=== PATIENT | female | born 1980 | race Caucasian/White ===

== ENCOUNTER 2018-10-29 16:24 | Emergency (ER) | payer OTHER ==
[2018-10-29 17:35] LABS: Absolute Lymphocytes (CBC) 2.8 K/uL (0.7-4.9); Absolute Monocytes 0.7 K/uL (0.1-1.3); Absolute Neutrophil 13.9 K/uL (1.8-8.0); Basophils % 0.5 % (0-1.3); Eosinophils % 0.6 % (0-4.4); Lymphocytes % 15.9 % (15.3-44.8); MPV 10.2 fL (7.6-11.3); Monocytes % 4.3 % (3.3-12.3); RBC Red Blood Cell Count 3.74 M/uL (3.86-4.86)
[2018-10-29] MEDS ORDERED: NA CHLORIDE 0.9% 1,000 ML ONE (18:06)
[2018-10-29 18:15] LABS: BUN Blood Urea Nitrogen 5 mg/dL (7-18); Bicarbonate 28 mmol/L (21-32); Glucose Level 108 mg/dL (74-106); HCG, Quantitative 8015 mIU/mL (1-3); Potassium 3.4 mmol/L (3.5-5.1); Sodium Level 139 mmol/L (136-145)
--- NOTE | 2018-10-29 19:11 | RAD REPORT ---
EXAM DESCRIPTION: US - Transvaginal OB - 10/29/2018 6:46 pm CLINICAL HISTORY: VAGINAL BLEEDING COMPARISON: No comparisons FINDINGS: Normal IUP findings are not seen. An abnormally shaped cystic structure seen in the lower uterine segment measuring 2 x 1 cm which may be a gestational sac which is soon to be expelled. The maternal adnexa and ovaries are within normal limits. Normal Doppler blood flow was demonstrated to both ovaries. IMPRESSION: Findings suggests inevitable spontaneous . Recommend followup HCG serial measure ments until normalization.
[2018-10-29] MEDS ORDERED: FENTANYL CITR 100 MCG/2 ML ONE (19:25)
[2018-10-29] MEDS ORDERED: ONDANSETRON 4 MG/2 ML VIAL ONE (19:25)
[2018-10-29] MEDS ORDERED: CEFTRIAXONE/SWI 1gm 1 GM/10 ML SYR ONE (19:25)
--- NOTE | 2018-10-29 20:07 | ER ---
Nurse's Notes [facility] Name: Mara Edwards Age: 38 yrs Sex: Female : 1980 Arrival Date: 10/29/2018 Time: 16:32 Bed 15 Private MD: out of town, doctor Diagnosis: Spontaneous Presentation: 10/29 16:35 Presenting complaint: Patient states: i had a miscarriage on the , the pain started tw2 yesterday, and have had 8 really large blood clots today and my oncall dr for the ob (dr. rodriguez [facility]) said to come get checked out. Transition of care: patient was not received from another setting of care. Onset of symptoms was October 29, 2018. Risk Assessment: Do you want to hurt yourself or someone else? Patient reports no desire to harm self or others. Initial Sepsis Screen: Does the patient meet any 2 criteria? No. Patient's initial sepsis screen is negative. Does the patient have a suspected source of infection? No. Patient's initial sepsis screen is negative. Care prior to arrival: None. 16:35 Method Of Arrival: Ambulatory tw2 16:35 Acuity: HANK 3 tw2 VIDEO GAME CREATOR: 16:37 LMP N/A - possibly 08/16/18 prior to miscarriage tw2 Historical: - Allergies: 16:38 No Known Allergies; tw2 - Home Meds: 16:38 None [Active]; tw2 - PMHx: 16:38 SVT; tw2 - PSHx: 16:38 Knee surgery; wrist; tw2 - Immunization history:: Adult Immunizations. - Social history:: Smoking status: Patient uses tobacco products, 10 or less. - Ebola Screening: : Patient denies exposure to infectious person Patient denies travel to an Ebola-affected area in the 21 days before illness onset. Screenin:40 Abuse screen: Denies threats or abuse. Nutritional screening: No deficits noted. rb1 Tuberculosis screening: No symptoms or risk factors identified. Fall Risk None identified. Assessment: 16:40 General: Appears in no apparent distress. comfortable, Behavior is calm, cooperative. rb1 Neuro: Level of Consciousness is awake, alert, obeys commands, Oriented to person, place, time, situation. Cardiovascular: Capillary refill < 3 seconds is brisk in bilateral fingers. Respiratory: Airway is patent Respiratory effort is even, unlabored, Respiratory pattern is regular, symmetrical. GI: Reports vomiting, x 1 today. Pt. stated, "I think it was because I took a Tylenol #3.". : Reports vaginal bleeding that is bright red, with clots, heavy flow since yesterday. Derm: Skin is pink, warm \\T\\ dry. 16:40 Pain: Complains of pain in suprapubic area, right lower quadrant and left lower rb1 quadrant Pain currently is 5 out of 10 on a pain scale. Quality of pain is described as crampy. 16:50 Reassessment: Pt. collected a urine specimen but it was bloody and she stated, "A big rb1 clot fell in it." Provider notified. Karytracy stated, "It's ok, we won't be able to use it.". 17:40 Reassessment: Patient appears in no apparent distress at this time. No changes from rb1 previously documented assessment. Provider at bedside doing pelvic exam. 18:40 Reassessment: Patient appears in no apparent distress at this time. Patient and/or rb1 family updated on plan of care and expected duration. Pain level reassessed. Patient is alert, oriented x 3, equal unlabored respirations, skin warm/dry/pink. 19:30 Reassessment: Patient appears in no apparent distress at this time. Patient and/or jb4 family updated on plan of care and expected duration. Pain level reassessed. Patient is alert, oriented x 3, equal unlabored respirations, skin warm/dry/pink. 20:30 Reassessment: Patient appears in no apparent distress at this time. Patient and/or jb4 family updated on plan of care and expected duration. Pain level reassessed. Patient is alert, oriented x 3, equal unlabored respirations, skin warm/dry/pink. Vital Signs: 16:37 BP 120 / 88; Pulse 133; Resp 19; Temp 97.4(O); Pulse Ox 100% ; Pain 4/10; tw2 16:39 Pulse 110; tw2 17:38 BP 107 / 78; Pulse 96; Resp 19; Pulse Ox 99% on R/A; rb1 18:35 BP 108 / 76; Pulse 88; Resp 17; Pulse Ox 100% on R/A; rb1 19:15 BP 97 / 76; Pulse 91; Resp 16; Pulse Ox 100% on R/A; jb4 20:45 BP 91 / 63; Pulse 78; Resp 16; Pulse Ox 100% ; jb4 ED Course: 16:32 Patient arrived in ED. sb2 16:32 out of town, doctor is Private Physician. sb2 16:36 Triage completed. tw2 16:37 Arm band placed on. tw2 16:40 Pavan Barnett PA is PHCP. jr8 16:40 Kenneth Tapia MD is Attending Physician. jr8 16:40 Lioda Lozano, BETHEL is Primary Nurse. rb1 16:40 Patient has correct armband on for positive identification. Bed in low position. Call rb1 light in reach. Side rails up X 1. Pulse ox on. NIBP on. 17:22 Initial lab(s) drawn, by me, sent to lab. Inserted saline lock: 20 gauge in right dh3 antecubital area, using aseptic technique. Blood collected. 18:15 Assist provider with pelvic exam: Performed by Pavan PALACIOS Patient tolerated well. eb 18:45 Transvaginal OB US In Process Unspecified. EDMS 19:10 Report given to BETHEL May. rb1 20:57 IV discontinued, intact, bleeding controlled. jb4 Administered Medications: 18:01 Drug: NS 0.9% 1000 ml Route: IV; Rate: 1000 ml; Site: right antecubital; rb1 19:45 Follow up: Response: No adverse reaction; IV Status: Completed infusion jb4 19:28 Drug: Zofran 4 mg Route: IVP; Site: right antecubital; jb4 20:32 Follow up: Response: No adverse reaction; Nausea is decreased jb4 19:30 Drug: fentaNYL (PF) 50 mcg Route: IVP; Site: right antecubital; jb4 20:33 Follow up: Response: No adverse reaction; Pain is decreased jb4 19:32 Drug: Rocephin 1 grams Route: IV; Rate: calculated rate; Site: right antecubital; jb4 19:34 Follow up: Response: No adverse reaction; IV Status: Completed infusion; Given IVP per jb4 pharmacy protocol. 20:40 Drug: Doxycycline 100 mg Route: PO; jb4 20:53 Follow up: Response: No adverse reaction jb4 20:53 Drug: Cytotec 400 mcg Route: PO; jb4 20:53 Follow up: Response: No adverse reaction jb4 Intake: Outcome: 20:06 Discharge ordered by . porsha 20:56 Discharged to home ambulatory, with significant other. jb4 20:56 Condition: stable 20:56 Discharge instructions given to patient, significant other, Instructed on discharge instructions, follow up and referral plans. medication usage, Demonstrated understanding of instructions, follow-up care, medications, Prescriptions given X 2. 20:57 Patient left the ED. jb4 Signatures: Dispatcher [employer] EDNC Pavan Barnett PA PA jr8 Loida Lozano, RN RN rb1 Maria R Pinzon RN RN tw2 Abisai Doyle RN RN jb4 Awa Martínez 3 Azucena [place] 2 Radha Garcia
--- NOTE | 2018-10-29 20:07 | EDPHYS ---
Physician Documentation [facility] Name: Mara Edwards Age: 38 yrs Sex: Female : 1980 Arrival Date: 10/29/2018 Time: 16:32 Bed 15 Private MD: out of town, doctor ED Physician Kenneth Tapia HPI: 10/29 18:59 This 38 yrs old Female presents to ER via Ambulatory with complaints of jr8 Vaginal Bleeding, + Preg <12wks. 18:59 The patient presents to the emergency department with vaginal bleeding, that is jr8 moderate, with clots. course: care: private OB physician. Previous pregnancies: in previous pregnancies patient has had vaginal delivery. Associated signs and symptoms: Pertinent positives: abdominal pain. The patient has experienced a previous episode, but today's symptoms are worse. The patient has not recently seen a physician. Patient stated that she had US on October 09 showing her child to be two weeks behind what his actual measurement should be. Noted to be having early spontaneous . On the started with spotting. Now having heaving bleeding and clots. Complains of intense abdominal cramping to lower abdomen. Was told to come to ED at that time . COORDINATOR OF PLACEMENT: 16:37 LMP N/A - possibly 08/16/18 prior to miscarriage tw2 Historical: - Allergies: 16:38 No Known Allergies; tw2 - Home Meds: 16:38 None [Active]; tw2 - PMHx: 16:38 SVT; tw2 - PSHx: 16:38 Knee surgery; wrist; tw2 - Immunization history:: Adult Immunizations. - Social history:: Smoking status: Patient uses tobacco products, 10 or less. - Ebola Screening: : Patient denies exposure to infectious person Patient denies travel to an Ebola-affected area in the 21 days before illness onset. ROS: 18:59 Eyes: Negative for injury, pain, redness, and discharge, ENT: Negative for injury, jr8 pain, and discharge, Neck: Negative for injury, pain, and swelling, Cardiovascular: Negative for chest pain, palpitations, and edema, Respiratory: Negative for shortness of breath, cough, wheezing, and pleuritic chest pain, Back: Negative for injury and pain, MS/Extremity: Negative for injury and deformity, Skin: Negative for injury, rash, and discoloration, Neuro: Negative for headache, weakness, numbness, tingling, and seizure. 18:59 Abdomen/GI: Positive for abdominal cramps, Negative for nausea, vomiting, and diarrhea. 18:59 : Positive for vaginal bleeding. Exam: 18:59 Eyes: Pupils equal round and reactive to light, extra-ocular motions intact. Lids and jr8 lashes normal. Conjunctiva and sclera are non-icteric and not injected. Cornea within normal limits. Periorbital areas with no swelling, redness, or edema. ENT: Nares patent. No nasal discharge, no septal abnormalities noted. Tympanic membranes are normal and external auditory canals are clear. Oropharynx with no redness, swelling, or masses, exudates, or evidence of obstruction, uvula midline. Mucous membranes moist. Neck: Trachea midline, no thyromegaly or masses palpated, and no cervical lymphadenopathy. Supple, full range of motion without nuchal rigidity, or vertebral point tenderness. No Meningismus. Cardiovascular: Regular rate and rhythm with a normal S1 and S2. No gallops, murmurs, or rubs. Normal PMI, no JVD. No pulse deficits. Respiratory: Lungs have equal breath sounds bilaterally, clear to auscultation and percussion. No rales, rhonchi or wheezes noted. No increased work of breathing, no retractions or nasal flaring. Back: No spinal tenderness. No costovertebral tenderness. Full range of motion. Skin: Warm, dry with normal turgor. Normal color with no rashes, no lesions, and no evidence of cellulitis. MS/ Extremity: Pulses equal, no cyanosis. Neurovascular intact. Full, normal range of motion. Neuro: Awake and alert, GCS 15, oriented to person, place, time, and situation. Cranial nerves II-XII grossly intact. Motor strength 5/5 in all extremities. Sensory grossly intact. Cerebellar exam normal. Normal gait. 18:59 Abdomen/GI: Inspection: abdomen appears normal, Bowel sounds: active, all quadrants, Palpation: soft, in all quadrants, mild abdominal tenderness, in the right lower quadrant and left lower quadrant, mass, is not appreciated, rebound tenderness, is not appreciated, voluntary guarding, is not appreciated, involuntary guarding, is not appreciated, no appreciated organomegaly, Indicators: McBurney's point is not tender, Mccormick's sign is negative, Rovsing's sign is negative, Liver: tenderness, is not appreciated. 18:59 : Pelvic Exam: External exam: is normal, Speculum exam: moderate bleeding, blood clots in vaginal vault, os that is open, no tissue in vagina is seen, a female otolaryngologist was present for the exam. Vital Signs: 16:37 BP 120 / 88; Pulse 133; Resp 19; Temp 97.4(O); Pulse Ox 100% ; Pain 4/10; tw2 16:39 Pulse 110; tw2 17:38 BP 107 / 78; Pulse 96; Resp 19; Pulse Ox 99% on R/A; rb1 18:35 BP 108 / 76; Pulse 88; Resp 17; Pulse Ox 100% on R/A; rb1 19:15 BP 97 / 76; Pulse 91; Resp 16; Pulse Ox 100% on R/A; jb4 20:45 BP 91 / 63; Pulse 78; Resp 16; Pulse Ox 100% ; jb4 MDM: 16:40 Patient medically screened. jr8 18:58 ED course: Placed at call at 18:[address] Packer to call back about patient . jr8 18:59 Data reviewed: vital signs, nurses notes, lab test result(s), radiologic studies, jr8 ultrasound. Data interpreted: Pulse oximetry: on room air is 99 %. Interpretation: normal. Counseling: I had a detailed discussion with the patient and/or guardian regarding: the historical points, exam findings, and any diagnostic results supporting the discharge/admit diagnosis, lab results, radiology results. ED course: Dr. Taylor called back and is coming to evaluate patient in ED. 20:01 ED course: Dr. Taylor was able to pass the rest of patients POC. Will give Cytotec now jr8 and continue antibiotics at home. Needs to f/u in a couple of days with her COORDINATOR OF PLACEMENT. If something were to change or worsen to come back. Patient good with this plan . 10/29 16:55 Order name: Quantitative Hcg; Complete Time: 18:16 8 10/29 16:55 Order name: Abo/rh Typing; Complete Time: 18:00 jr8 10/29 16:55 Order name: Basic Metabolic Panel; Complete Time: 18:16 8 10/29 16:55 Order name: CBC with Diff; Complete Time: 17:42 jr8 10/29 18:04 Order name: ABO/RH no charge; Complete Time: 18:10 EDMS 10/29 20:16 Order name: Urine Dipstick--Ancillary (enter results); Complete Time: 20:36 oe 10/29 17:55 Order name: Transvaginal OB US; Complete Time: 19:17 rb1 10/29 20:17 Order name: Urine --Ancillary (enter results); Complete Time: 20:36 oe 10/29 16:55 Order name: Urine Test (obtain specimen); Complete Time: 20:41 [facility] 10/29 16:55 Order name: IV Saline Lock; Complete Time: 17:30 [facility] 10/29 16:55 Order name: Labs collected and sent; Complete Time: 17:30 [facility] 10/29 16:55 Order name: NPO; Complete Time: 17:30 [facility] 10/29 16:55 Order name: Urine Dipstick-Ancillary (obtain specimen); Complete Time: 20:35 [facility] 10/29 17:04 Order name: Pelvic Exam Setup; Complete Time: 17:31 jr8 Administered Medications: 18:01 Drug: NS 0.9% 1000 ml Route: IV; Rate: 1000 ml; Site: right antecubital; rb1 19:45 Follow up: Response: No adverse reaction; IV Status: Completed infusion jb4 19:28 Drug: Zofran 4 mg Route: IVP; Site: right antecubital; jb4 20:32 Follow up: Response: No adverse reaction; Nausea is decreased jb4 19:30 Drug: fentaNYL (PF) 50 mcg Route: IVP; Site: right antecubital; jb4 20:33 Follow up: Response: No adverse reaction; Pain is decreased jb4 19:32 Drug: Rocephin 1 grams Route: IV; Rate: calculated rate; Site: right antecubital; jb4 19:34 Follow up: Response: No adverse reaction; IV Status: Completed infusion; Given IVP per [facility] pharmacy protocol. 20:40 Drug: Doxycycline 100 mg Route: PO; jb4 20:53 Follow up: Response: No adverse reaction jb4 20:53 Drug: Cytotec 400 mcg Route: PO; jb4 20:53 Follow up: Response: No adverse reaction jb Disposition: 10/30 09:55 Co-signature as Attending Physician, Kenneth Tapia MD. rn Disposition: 10/29/18 20:06 Discharged to Home. Impression: Spontaneous . - Condition is Stable. - Discharge Instructions: Miscarriage. - Prescriptions for Tylenol- Codeine #3 300-30 mg Oral Tablet - take 2 tablets by ORAL route every 6 hours As needed; 12 tablet. Doxycycline Monohydrate 100 mg Oral Tablet - take 1 tablet by ORAL route every 12 hours for 10 days; 20 tablet. - Medication Reconciliation Form, Thank You Letter, Antibiotic Education, Prescription Opioid Use form. - Follow up: Private Physician; When: 48 Hours; Reason: Recheck today's complaints, Continuance of care, Re-evaluation by your physician. - Problem is new. - Symptoms have improved. Signatures: Dispatcher [employer] EDMS Kenneth Tapia MD MD rn Roszak, Josh, PA PA jr8 Loida Lozano, RN RN rb1 Maria R Pinzon RN RN tw2 Abisai Doyle RN RN jb4 Corrections: (The following items were deleted from the chart) 10/29 20:57 20:06 10/29/2018 20:06 Discharged to Home. Impression: Spontaneous . Condition jb4 is Stable. Forms are Medication Reconciliation Form, Thank You Letter, Antibiotic Education, Prescription Opioid Use. Follow up: Private Physician; When: 48 Hours; Reason: Recheck today's complaints, Continuance of care, Re-evaluation by your physician. Problem is new. Symptoms have improved. jr8
--- NOTE | 2018-10-29 20:19 | P.CNS ---
Date of Consult: 10/29/18 Patient is a 38 y/o who presented at approximately 8 weeks gestation with inevitable . Her [employer] TRAINER is in [place] and she has been following her for missed . She was found to have an HCG level of 30,000 and now today it is 8,000 and her ultrasound reveals products of conception in the lower uterine segment. Selected Entries 10/29/18 18:35 Pulse Rate 88 Respiratory 17 Rate Blood Pressure 108/76 O2 Sat by Pulse 100 Oximetry Laboratory Tests 10/29/18 10/29/18 17:22 17:22 WBC 17.6 H Hgb 11.5 L Hct 34.0 L Plt Count 268 Beta HCG, Quant 8015 H GEN: patient resting in bed; mild to moderate distress Head/Neck: NCAT/supple Heart: RRR Resp: symmetric non-labored breathing ABD: soft; mildly tender, non-distended EXT: no edema bilaterally Pelvic: normal external female genitalia. Sterile speculum placed in the vagina ; blood clots and products of conception noted in the vaginal vault, these were removed, products placed in container to be sent to pathology. Once products of conception were removed cervical os was noted to stop bleeding. Patient presented with inevitable now complete . RH positive - Cytotec 400 mcg given to patient - Doxycycline 100mg BID for 7 days - Patient instructed to follow up with her [employer]RI[employer] TRAINER this week. - Precautions given to return to ED for heavy bleeding.
[2018-10-29 20:33] LABS: Urine Blood 3+ (NEG); Urine Glucose NEGATIVE (NEG); Urine Protein NEGATIVE (NEG); Urine Specific Gravity 1.015 (1.005-1.030); Urine pH 8.5 (5.0-7.0)
[2018-10-29 20:33] LABS: Urine Specific Gravity 1.015 (1.005-1.030)
[2018-10-29] MEDS ORDERED: DOXYCYCLINE 100 MG CAP PO ONE (20:47)
[2018-10-29] MEDS ORDERED: miSOPROStol 100 MCG TAB ONE (20:53)
== END 2018-10-29 20:57 | disposition home or self-care (01) ==
LOC: ER 16:24
DX: O03.9 Complete or unspecified spontaneous abortion without complication (principal); Z72.0 Tobacco use
CPT/HCPCS: 36415; 76817; 80048; 81003; 81025; 84702; 85025; 86900; 86901; 88305; 96361; 96374; 96375; 99284; J0696; J2405; J3010; J7030